=== PATIENT | female | born 1975 | race Caucasian/White ===

== ENCOUNTER 2016-03-06 01:00 | Emergency (ER) | payer MEDICAID ==
[2016-03-06] MEDS ORDERED: OPTIRAY 350 100 ML VIAL HMH IV ONE (01:01)
[2016-03-06] MEDS ORDERED: LEVOFLOXACIN 500 MG TAB ONE (03:35)
== END 2016-03-06 03:48 | disposition home or self-care (01) ==
LOC: ER 01:00
DX: N30.00 Acute cystitis without hematuria (principal); F17.210 Nicotine dependence, cigarettes, uncomplicated
CPT/HCPCS: 36415; 74177; 80053; 81001; 83690; 84703; 85025; 87077; 87088; 87186